=== PATIENT | male | born 1955 | race Caucasian/White ===

== ENCOUNTER → 2021-12-20 | Outpatient (CLI) | payer BC | LOC: EXRD 10:33 | DX: R06.02 Shortness of breath (principal); J64 Unspecified pneumoconiosis; R91.8 Other nonspecific abnormal finding of lung field; R94.2 Abnormal results of pulmonary function studies | CPT/HCPCS: 71046; 94010 ==

== ENCOUNTER → 2021-12-25 | Outpatient (CLI) | payer BC | LOC: KOH-I 08:20 | DX: J64 Unspecified pneumoconiosis (principal) | CPT/HCPCS: 71250 ==

== ENCOUNTER → 2022-01-23 | Outpatient (CLI) | payer BC | LOC: SLEEP 21:23 | DX: G47.33 Obstructive sleep apnea (adult) (pediatric) (principal) | CPT/HCPCS: 95810 ==